=== PATIENT | female | born 1950 | race Caucasian/White ===

== ENCOUNTER 2019-01-15 04:01 | Emergency (ER) | payer OTHER ==
[~2019-01-15] VITALS: Ht 162.6 cm; Wt 57.2 kg
--- NOTE | 2019-01-15 04:10 | NUR ---
Patient to ER bed 7 to gown for evaluation. Side rails up.
[2019-01-15 04:12] VITALS: BP_SYST 131
--- NOTE | 2019-01-15 04:15 | NUR ---
Pt came to the ED for vomiting and diarrhea. Reports she had a monae and cheese burrito with chile on . Reports she has been feeling nauseus. States that she feels like needs to vomit however, she cannot. 1 episode of diarrhea. Denies fever and chills. No other complaints/injuries noted. Will cont. to monitor.
[2019-01-15] MEDS ORDERED: LISI-600 PO (04:20)
--- NOTE | 2019-01-15 04:20 | NUR ---
ER at bedside examining patient.
--- NOTE | 2019-01-15 04:30 | NUR ---
Nieves chanel in ED - 01/15/19 at 0714 by [email or web address] EMILY Ruffin at bedside examining patient.
[2019-01-15] MEDS ORDERED: NACL 0.9% 1,000 ML IV ONE (04:45)
[2019-01-15] MEDS ORDERED: ONDANSETRON HCL 4 MG/2 ML VIAL IVP ONE (04:45)
--- NOTE | 2019-01-15 05:00 | NUR ---
Pt resting comfortably in bed, no signs of acute distress. WIll cont. to monitor.
--- NOTE | 2019-01-15 06:00 | NUR ---
Pt resting comfortably in bed, no signs of acute distress. Will cont. to monitor.
[2019-01-15] MEDS ORDERED: ONDANSETRON HCL 4 MG/2 ML VIAL ONE (07:00)
--- NOTE | 2019-01-15 07:00 | NUR ---
Pt resting comfortably in bed, no signs of acute distress. Will cont. to monitor.
[2019-01-15 07:18] LABS: BASOPHILS % (AUTO) 0.3 % (0.0-2.0); EOSINOPHILS % (AUTO) 0.4 % (0.0-4.0); HEMATOCRIT 39.5 % (36-48); HEMOGLOBIN 13.6 g/dL (12.0-16.0); LYMPHOCYTES # (AUTO) 1.1 K/uL (1.0-5.5); LYMPHOCYTES % (AUTO) 14.4 % (20.5-51.5); MEAN CORPUSCULAR HEMOGLOBIN 33 pg (27-31); MEAN CORPUSCULAR HGB CONC 34 % (32-36); MEAN CORPUSCULAR VOLUME 97 fL (79.0-98.0); MONOCYTES # (AUTO) 0.5 K/uL (0.0-1.0); MONOCYTES % (AUTO) 6.1 % (1.7-9.3); NEUTROPHILS # (AUTO) 6.2 K/uL (1.8-7.7); NEUTROPHILS % (AUTO) 78.8 % (40.0-70.0); PLATELET COUNT (AUTO) 215 K/uL (130-430); RED BLOOD CELL COUNT(AUTO) 4.07 MIL/uL (4.2-6.2); RED CELL DISTRIBUTION WIDTH 12.8 % (9.0-15.0); WHITE BLOOD COUNT (AUTO) 7.9 K/uL (4.8-10.8)
[2019-01-15 07:44] LABS: CALCIUM 8.5 mg/dL (8.4-11.0); CREATININE 0.63 mg/dL (0.55-1.30); POTASSIUM 4.1 mmol/L (3.5-5.1)
[2019-01-15 07:49] LABS: ALBUMIN 3.5 g/dL (3.4-4.8); TOTAL BILIRUBIN 0.6 mg/dL (0.0-1.0)
[2019-01-15 09:09] VITALS: BP_SYST 131
--- NOTE | 2019-01-15 09:09 | NUR ---
Patient given written and verbal discharge instructions and verbalizes understanding. ER MD discussed with patient the results and treatment provided. Patient in stable condition. ID arm band removed. IV catheter removed intact and dressing applied, no active bleeding. Rx of Lomotil, Zofran given. Patient educated on pain management and to follow up with PMD. Pain Scale 2/10 tolerable for patient. Opportunity for questions provided and answered. Medication side effect fact sheet provided.
== END 2019-01-15 09:09 | disposition home or self-care (01) ==
LOC: SED 04:01
DX: K52.9 Noninfective gastroenteritis and colitis, unspecified (principal); E86.0 Dehydration; R53.81 Other malaise; I10 Essential (primary) hypertension; Z88.2 Allergy status to sulfonamides
CPT/HCPCS: 36415; 80053; 83605; 84484; 85025; 87040; 93005; 96361; 96374; 99284; J2405; J7030